=== PATIENT | male | born 1950 | race Caucasian/White ===

== ENCOUNTER → 2023-09-08 14:10 | Outpatient (REF) | payer OTHER, SELFPAY | LOC: HWRAD 14:10 | PROVIDERS: ATTENDING PHYSICIAN Specialist; FAMILY PHYSICIAN Family Medicine | DX: N28.1 Cyst of kidney, acquired (principal) | CPT/HCPCS: 74018 ==

== ENCOUNTER 2024-02-23 18:33 | Emergency (ER) | payer OTHER, SELFPAY ==
[2024-02-23 18:39] VITALS: BP 167/96
[2024-02-23 19:01] LABS: % Basophils 0.6 % (0-2); % Eosinophils 3.7 % (0-6); % Immature Granulocytes 0.2 % (0-0.5); % Lymphocytes 30.1 % (20.5-51.1); % Monocytes 9.6 % (1.7-9.3); % Neutrophils 55.8 % (42.2-75.2); Absolute Eosinophils 0.2 10^3/uL (0-0.7); Absolute Lymphocytes 1.5 10^3/uL (1.2-3.4); Absolute Monocytes 0.5 10^3/uL (0.1-0.6); Absolute Neutrophils 2.8 10^3/uL (1.4-6.5); Hematocrit 39.9 % (39.0-52.0); Hemoglobin 13.5 g/dL (13.0-18.0); Mean Corp Hgb Conc. 33.8 g/dL (33.0-37.0); Mean Corpuscular Volume 94.5 fL (80.0-94.0); Mean Platelet Volume 9.6 fL (7.4-10.4); Nucleated Red Blood Cells % 0 % (-); Platelet Count 155 10^3/uL (130-400); Red Blood Cell Count 4.22 10^6/uL (4.70-6.10); Red Cell Dist. Width 12.6 % (11.5-14.5); White Blood Cell Count 5.1 10^3/uL (4.8-10.8)
[2024-02-23 19:22] LABS: Troponin I 0.026 ng/ml
[2024-02-23 19:32] LABS: ALT (SGPT) 35 U/L (0-50); AST (SGOT) 33 U/L (17-59); Albumin 4.5 g/dl (3.5-5.0); Alkaline Phosphatase 52 U/L (38-126); Blood Urea Nitrogen 33 mg/dl (9-20); Carbon Dioxide 19 mmol/L (22-30); Chloride 109 mmol/L (98-107); Glucose 86 mg/dl (70-99); Potassium 4.7 mmol/L (3.5-5.1); Sodium 141 mmol/L (135-145); Total Protein 6.6 g/dl (6.3-8.2)
[2024-02-23 20:37] VITALS: BMI 31.0
--- NOTE | 2024-02-23 20:57 | ED.GENMED ---
History of Present Illness
General
Chief Complaint: Chest Pain
Source: patient and spouse
Exam Limitations: none
Time Seen by Provider: 02/23/24 20:34
Nursing documentation reviewed up to this point in time: agreed with
History of Present Illness
History of Present Illness:
73-year-old male presents Emergency Department due to midsternal chest pain and shortness of breath for the past 2 weeks. The pain is constant but varies in intensity. He called Dr. Joyce Milligan and was directed to the emergency department.
Past History
Past History
ED Past Medical History: GERD, HTN, Psychiatric (Depression), Other (Vertigo, kidney stones) and Other
ED Past Surgical History: Cardiac (Pleural or pericardial cyst removal ), Orthopedic, Tonsilectomy, Urological (Lithotripsy) and Other (Gastric bypass surgery )
Social History
Tobacco: Non-smoker
Alcohol: Occasional
Personal:
Living: with family
Employment: Employed
Family History
Family History: Other
Review of Systems
Review of Systems
Allergies reviewed?: Yes
All Other Systems: Not applicable
Constitutional: Reports no symptoms
EENT: Reports no symptoms
Respiratory: Reports trouble breathing
Cardiac: Reports chest pain
ABD/GI: Reports no symptoms
: Reports no symptoms
Musculoskeletal: Reports no symptoms
Skin: Reports no symptoms
Neurological: Reports no symptoms
Endocrine: Reports no symptoms
Hematologic/Lymphatic: Reports no symptoms
Psychiatric: Reports no symptoms
Phy Exam
Physical Exam
Physical Exam:
Physical Exam
General: no apparent distress, not acutely ill
Neck: supple. no meningeal signs. normal posterior pharynx
Heart: s1/s2 regular rate and rhythm, no murmur. equal radial
pulses. Mild chest wall tenderness to palpation, reproducing pain.
HEENT: Pupils equal round reactive to light, EOMI
Lungs: no acute respiratory distress. clear bilaterally
Abdomen: normal bowel sounds. not tender. no CVAT
Neuro: alert and oriented. no focal neurological deficits cranial nerves II through XII intact
Skin: no rash
Psychiatric: well kept. interactive and cooperative
Extremities: no edema. no calf tenderness. negative homans. good distal pulses
Scores
Heart Score for Chest Pain Patients
STEMI patient?: No
History: Moderately Suspicious
ECG: Normal
Age: >/= 65 years
Risk Factors: 1 or 2 Risk Factors
Troponin: </= Normal Limit
Heart Score for Chest Pain Patients: 4
Heart Score Risk: 20.3% MACE over next 6 weeks
Course
Orders/Labs/Results
Orders:
Orders
02/23/24 18:35
Electrocardiogram (*1) Urgent
Reason for Study: Chest Pain
EKG- Treatment ONCE
02/23/24 18:50
Complete Blood Count/With Diff Urgent
Comprehensive Metabolic Panel Urgent
Troponin I Urgent
02/23/24 20:50
D-Dimer Urgent
02/23/24 21:48
Troponin I Urgent
Abnormal Lab Results
02/23/24
18:50
RBC 4.22 L 10^6/uL
(4.70-6.10)
MCV 94.5 H fL
(80.0-94.0)
MCH 32.0 H pg
(27.0-31.0)
Monocytes % 9.6 H %
(1.7-9.3)
Chloride 109 H mmol/L
(98-107)
Carbon Dioxide 19 L mmol/L
(22-30)
BUN 33 H mg/dl
(9-20)
Creatinine 1.6 H mg/dL
(0.7-1.3)
02/23/24 18:50
02/23/24 18:50
Vital Signs
Initial and Last Documented VS:
Initial Vital Signs
Temp Pulse Resp BP Pulse Ox
97.9 F 63 16 167/96 99
02/23/24 18:39 02/23/24 18:39 02/23/24 18:39 02/23/24 18:39 02/23/24 18:39
Last Documented Vital Signs
Temp Pulse Resp BP Pulse Ox
97.9 F 53 15 117/75 97
02/23/24 18:39 02/23/24 22:45 02/23/24 22:45 02/23/24 22:00 02/23/24 22:45
MDM/Problems Addressed
Differential Diagnosis Includes:
Angina, chest wall pain
MDM/Problems Addressed:
73-year-old male with chest pain, unclear etiology, favor chest wall pain. Patient has had some shortness of breath as well. Serial troponins negative. Stable for discharge and follow-up with cardiology.
Chronic conditions affecting care: HTN
Acute Exacerbation and/or Progression of Chronic Illness: HTN
*Radiology
Radiology exam reviewed: radiology read reviewed (Chest x-ray no acute findings)
*Pulse Oximetry
Patient hypoxic: no
*EKG
Interpreted by ED Provider?: Yes
EKG Intrepretation Date: 02/23/24
EKG Intrepretation Time: 18:40
Interpretation: abnormal
Comparison EKG: changes noted
Heart Rate: 53
Rate: bradycardiac
Rhythm: sinus
[place]: normal axis
Interval: normal interval
QRS Pattern: normal QRS
Ischemia: no ischemia
*Hydraulic Punch Press Operator Interpretation
Rate: bradycardiac
Interpretation: abnormal
Heart Rate: 53
Rhythm: sinus
*Critical Care Note
Total Time (30-74mins, 75-104mins- exclusive of procedures): Not Applicable
Patient Management
Social determinants of health affecting care: Living situation and Strong social support
Escalation/DeEscalation of care consider admission/obs:
admit not indicated
ED Attending Note
-
Portions of this chart may have been created with voice recognition software.� Occasional wrong word or��sound alike� substitutions may have occurred due to the inherent limitations of voice recognition software.
Discharge Plan
Departure
Patient Disposition: Home (Routine Discharge)
Date of Disposition: 02/23/24
Time of Disposition: 22:41
Patient with high blood pressure during this ER visit?: Yes
Condition: Good
Discharge Problem:
Chest pain
Instructions: Chest Pain DCA Follow Up
Prescriptions:
No Action
amlodipine 5 MG tablet
5 mg PO BID
pantoprazole 40 MG tablet,delayed release (DR/EC)
40 mg PO DAILY
losartan 50 MG tablet
50 mg PO BID
acetaminophen 325 MG tablet
650 mg PO Q4HPRN PRN (Reason: mild pain)
loperamide 2 MG capsule
2 mg PO Q4HPRN PRN (Reason: diarrhea)
cyanocobalamin (vitamin B-12) 1,000 MCG tablet
1,000 mcg PO DAILY
thiamine HCl (vitamin B1) 100 MG tablet
100 mg PO DAILY
doxazosin 4 MG tablet
4 mg PO HS
escitalopram oxalate 10 MG tablet
10 mg PO QPM
cholecalciferol (vitamin D3) 1,000 UNITS tablet
1,000 units PO DAILY
potassium citrate 15 MEQ tablet extended release
15 meq PO BID
multivitamin with folic acid [Tab-A-Willow] 1 TABLET tablet
1 tab PO DAILY
cefuroxime axetil 500 MG tablet
500 mg PO BID Qty: 14 0RF
Referrals:
Rivera Zamudio DO [Family Provider] -
Interventions
Interventions:
*Risk Screen - Suicide Last Done: 02/23/24 18:40
*General Assessment Last Done: 02/23/24 20:37
*Neglect/Abuse Screening Last Done: 02/23/24 18:40
ED- Fall Risk Assessment Last Done: 02/23/24 20:40
*ED COVID-19 Vaccine History Last Done: 02/23/24 20:37
*Nursing Disposition Last Done: 02/23/24 22:52
ED- Cardiac Assessment Last Done: 02/23/24 20:40
Discharge Date and Time
Discharge Date/Time: 02/23/24 22:52
Print Language: ISRAELI
[2024-02-23 21:00] VITALS: BP 130/85
[2024-02-23 21:11] LABS: D-Dimer 0.43 ug/mlFEU (0.00-0.50)
[2024-02-23 22:00] VITALS: BP 117/75
[2024-02-23 22:18] LABS: Troponin I 0.025 ng/ml
== END 2024-02-23 22:52 | disposition home or self-care (01) ==
LOC: EMR 18:33
PROVIDERS: Emergency Medicine; EMERGENCY PHYSICIAN Emergency Medicine; FAMILY PHYSICIAN Family Medicine
DX: R07.89 Other chest pain (principal); I10 Essential (primary) hypertension
CPT/HCPCS: 99285; 71046; 80053; 84484; 85025; 85379; 93005

== ENCOUNTER 2024-02-25 15:15 | Inpatient (IN) | payer OTHER, MEDICARE, SELFPAY ==
[2024-02-25] VITALS (14 sets, daily range): BP systolic 104–133; BP diastolic 63–92
--- NOTE | 2024-02-25 11:41 | ED.GENMED ---
History of Present Illness
<Brittany Alexis PA-C - Last Filed: 02/25/24 17:14>
General
Chief Complaint: Chest Pain
Source: patient
Time Seen by Provider: 02/25/24 11:30
History of Present Illness
History of Present Illness:
73yoM with a history of hypertension presenting for evaluation of chest pain. Patient has been having ongoing central chest pain and shortness of breath over the past several weeks. Symptoms worsen with exertion. He was seen in the ED 2 days ago
for the same and was discharged after serial troponins were negative. He was seen by his physical security specialist today, Dr. Milligan, and he was sent to the ED for cardiac catheterization. He currently has mild chest discomfort which has improved since his
last ED visit. He denies any history of coronary artery disease.
Past History
<Brittany Alexis PA-C - Last Filed: 02/25/24 17:14>
Past History
ED Past Medical History: GERD, HTN, Psychiatric (Depression), Other (Vertigo, kidney stones) and Other
ED Past Surgical History: Cardiac (Pleural or pericardial cyst removal ), Orthopedic, Tonsilectomy, Urological (Lithotripsy) and Other (Gastric bypass surgery )
Social History
Tobacco: Non-smoker
Alcohol: Occasional
Personal:
Living: with family
Employment: Employed
Family History
Family History: Other
Phy Exam
<Brittany Alexis PA-C - Last Filed: 02/25/24 17:14>
General Physical Exam
General Presentation: well appearing and no apparent distress
General age: appears stated age
General Skin: warm and dry
General Habitus: normal
General Mental: alert
General Hydration: appears well hydrated
ENT Exam
ENT Exam: normocephalic
Cardiovascular Exam
Cardiovascular Exam: regular rate/rhythm, no murmur and normal peripheral pulses (2+ radial and DP pulses bilaterally)
Pulmonary Exam
Pulmonary Exam: lungs clear, no respiratory distress, no rales, no crackles, no rhonchi and no wheezing
Neurological Exam
Neurological Exam: alert
[place] Coma Scale
Eye Opening: Spontaneous
Verbal Response: Oriented
Motor Response: Obeys Commands
GCS Total Score: 15
Skin Exam
Skin Exam: normal color and warm/dry
Psychiatric Exam
Psychiatric Exam: normal mood/affect
<Chad Rodriguez DO - Last Filed: 02/25/24 12:41>
[place] Coma Scale
GCS Total Score: 15
Scores
<Brittany Alexis PA-C - Last Filed: 02/25/24 17:14>
Heart Score for Chest Pain Patients
STEMI patient?: No
History: Moderately Suspicious
ECG: Normal
Age: >/= 65 years
Risk Factors: 1 or 2 Risk Factors
Troponin: </= Normal Limit
Heart Score for Chest Pain Patients: 4
Heart Score Risk: 20.3% MACE over next 6 weeks
Course
<Brittany Alexis PA-C - Last Filed: 02/25/24 17:14>
Orders/Labs/Results
Orders:
Orders
02/25/24 11:19
Electrocardiogram (*1) Urgent
Reason for Study: Chest Pain
EKG- Treatment ONCE
02/25/24 11:30
Cardiac Monitoring- Treatment ONCE
Aspirin Chewable [Low Strength Aspirin] 324 mg PO NOW STA
02/25/24 11:31
CR Chest - 2 Views Urgent
Comment:
Reason For Exam: CP
02/25/24 11:40
Atorvastatin [Lipitor] 40 mg PO NOW STA
02/25/24 11:45
CARDIOLOGY CONSULT Urgent
Consulting Provider: Kirill Mercedes
Was physician already notified: Yes
02/25/24 11:56
Heparin 4,000 units IV NOW STA
Nursing to Place Non Medication Order As Directed
Physician Order: PTT 6 hours after initial start of Heparin infusion
Above order entered?: Yes
02/25/24 12:00
Heparin 47660 Units/250 ml 25,000 units in 250 ml IV PER PROTOCOL
Weight to be used for heparin protocol in kilograms (kg):: 92.1
Protocol:: Cardiac Tx/Acute Coronary
PTT Goal Range to be used:: PTT 73 to 111 seconds
Order type:: Initial
INITIAL Infusion Dose (UNITS/KG/hr) & then follow protocol:: 12 units/kg/hr
Infusion Dose in UNITS/hr & then follow protocol (UNITS/hr):: 1,000
INFUSION RATE in mL/hr & then follow protocol (mL/hr):: 10
PTT less than or equal to 64 seconds:: Increase rate by 200 units/hr (+ 2 mL/hr)
PTT 64.1 to 72.9 seconds:: Increase rate by 100 units/hr (+ 1 mL/hr)
PTT 73 to 111 seconds:: Target Range. No change in rate.
PTT 111.1 to 130.9 seconds:: Decrease rate by 100 units/hr (- 1 mL/hr)
PTT 131 to 199.9 seconds:: HOLD for 1 hr. Then decrease rate by 200 units/hr (- 2 mL/hr)
PTT greater than or equal to 200 seconds:: HOLD for 2 hrs & Notify Provider. Then decrease by 200 units/hr (-
2 mL/hr)
Lab follow-up:: Each change, PTT q6h until 2 consecutive are therapeutic. Then PTT
daily.
02/25/24 12:47
Complete Blood Count/With Diff Urgent
Comprehensive Metabolic Panel Urgent
PTT Urgent
PTT Urgent
Comment: Obtain baseline before beginning heparin infusion if not already collected
Prothrombin Time Urgent
Troponin I Urgent
02/25/24 14:00
Hydrocortisone Sod Succinate [Solu-Cortef] 200 mg IV NOW STA
02/25/24 14:25
Admit/Transfer Patient As Directed
Co-Sign Provider:
Level of Care: Inpatient admission
Assign to:: Telemetry
Physician / Group: Dr. Delbert Pizarro
Diagnosis: Chest pain
Reason for Telemetry: Chest Pain syndromes
Date to Stop Telemetry: 02/27/24
Time to Stop Telemetry: 11:00
Reason for Hospitalization: Persistent chest pain
Expected length of stay greater than two midnights?: Yes
ELOS- Estimated Length of Stay in days: 3
I certify the patient meets the requirements for IP care: Yes
02/25/24 15:05
Code Status As Directed
Resuscitation Status: Full Code
02/25/24 16:34
Acetaminophen [Tylenol] 650 mg PO Q4HPRN PRN
02/25/24 18:00
Escitalopram Oxalate [Lexapro] 10 mg PO QPM
02/25/24 18:54
PTT Urgent
02/25/24 20:00
Amlodipine [Norvasc] 5 mg PO BID
Losartan [Cozaar] 50 mg PO BID
Pantoprazole [Protonix] 40 mg PO BID
02/25/24 22:00
Doxazosin Mesylate [Cardura] 4 mg PO HS
02/26/24 08:00
Aspirin Chewable [Low Strength Aspirin] 81 mg PO DAILY
02/27/24 11:00
DC Protocol for Telemetry ONCE
Abnormal Lab Results
02/25/24
12:47
WBC 3.8 L 10^3/uL
(4.8-10.8)
RBC 4.04 L 10^6/uL
(4.70-6.10)
Hct 38.3 L %
(39.0-52.0)
MCV 94.8 H fL
(80.0-94.0)
MCH 32.2 H pg
(27.0-31.0)
Plt Count 128 L 10^3/uL
(130-400)
PT 14.7 H Sec
(11.4-14.6)
Chloride 108 H mmol/L
(98-107)
BUN 31 H mg/dl
(9-20)
Creatinine 1.6 H mg/dL
(0.7-1.3)
Total Protein 6.0 L g/dl
(6.3-8.2)
02/25/24 12:47
02/25/24 12:47
Vital Signs
Initial and Last Documented VS:
Initial Vital Signs
Temp Pulse Resp Pulse Ox
97.9 F 58 18 100
02/25/24 11:20 02/25/24 11:20 02/25/24 11:20 02/25/24 11:20
Last Documented Vital Signs
Temp Pulse Resp BP Pulse Ox
97.9 F 55 9 125/88 97
02/25/24 11:20 02/25/24 17:01 02/25/24 16:38 02/25/24 17:01 02/25/24 16:38
<Chad Rodriguez, DO - Last Filed: 02/25/24 12:41>
Orders/Labs/Results
Orders:
Orders
02/25/24 11:19
Electrocardiogram (*1) Urgent
Reason for Study: Chest Pain
EKG- Treatment ONCE
02/25/24 11:30
Cardiac Monitoring- Treatment ONCE
Aspirin Chewable [Low Strength Aspirin] 324 mg PO NOW STA
02/25/24 11:31
CR Chest - 2 Views Urgent
Comment:
Reason For Exam: CP
02/25/24 11:40
Atorvastatin [Lipitor] 40 mg PO NOW STA
02/25/24 11:45
CARDIOLOGY CONSULT Urgent
Consulting Provider: Kirill Mercedes
Was physician already notified: Yes
02/25/24 11:56
Heparin 4,000 units IV NOW STA
Nursing to Place Non Medication Order As Directed
Physician Order: PTT 6 hours after initial start of Heparin infusion
Above order entered?: Yes
02/25/24 12:00
Heparin 92213 Units/250 ml 25,000 units in 250 ml IV PER PROTOCOL
Weight to be used for heparin protocol in kilograms (kg):: 92.1
Protocol:: Cardiac Tx/Acute Coronary
PTT Goal Range to be used:: PTT 73 to 111 seconds
Order type:: Initial
INITIAL Infusion Dose (UNITS/KG/hr) & then follow protocol:: 12 units/kg/hr
Infusion Dose in UNITS/hr & then follow protocol (UNITS/hr):: 1,000
INFUSION RATE in mL/hr & then follow protocol (mL/hr):: 10
PTT less than or equal to 64 seconds:: Increase rate by 200 units/hr (+ 2 mL/hr)
PTT 64.1 to 72.9 seconds:: Increase rate by 100 units/hr (+ 1 mL/hr)
PTT 73 to 111 seconds:: Target Range. No change in rate.
PTT 111.1 to 130.9 seconds:: Decrease rate by 100 units/hr (- 1 mL/hr)
PTT 131 to 199.9 seconds:: HOLD for 1 hr. Then decrease rate by 200 units/hr (- 2 mL/hr)
PTT greater than or equal to 200 seconds:: HOLD for 2 hrs & Notify Provider. Then decrease by 200 units/hr (-
2 mL/hr)
Lab follow-up:: Each change, PTT q6h until 2 consecutive are therapeutic. Then PTT
daily.
02/25/24 12:47
Complete Blood Count/With Diff Urgent
Comprehensive Metabolic Panel Urgent
PTT Urgent
PTT Urgent
Comment: Obtain baseline before beginning heparin infusion if not already collected
Prothrombin Time Urgent
Troponin I Urgent
02/25/24 14:00
Hydrocortisone Sod Succinate [Solu-Cortef] 200 mg IV NOW STA
02/25/24 14:25
Admit/Transfer Patient As Directed
Co-Sign Provider:
Level of Care: Inpatient admission
Assign to:: Telemetry
Physician / Group: Dr. Delbert Pizarro
Diagnosis: Chest pain
Reason for Telemetry: Chest Pain syndromes
Date to Stop Telemetry: 02/27/24
Time to Stop Telemetry: 11:00
Reason for Hospitalization: Persistent chest pain
Expected length of stay greater than two midnights?: Yes
ELOS- Estimated Length of Stay in days: 3
I certify the patient meets the requirements for IP care: Yes
02/25/24 15:05
Code Status As Directed
Resuscitation Status: Full Code
02/25/24 16:34
Acetaminophen [Tylenol] 650 mg PO Q4HPRN PRN
02/25/24 18:00
Escitalopram Oxalate [Lexapro] 10 mg PO QPM
02/25/24 18:54
PTT Urgent
02/25/24 20:00
Amlodipine [Norvasc] 5 mg PO BID
Losartan [Cozaar] 50 mg PO BID
Pantoprazole [Protonix] 40 mg PO BID
02/25/24 22:00
Doxazosin Mesylate [Cardura] 4 mg PO HS
02/26/24 08:00
Aspirin Chewable [Low Strength Aspirin] 81 mg PO DAILY
02/27/24 11:00
DC Protocol for Telemetry ONCE
Abnormal Lab Results
02/25/24
12:47
WBC 3.8 L 10^3/uL
(4.8-10.8)
RBC 4.04 L 10^6/uL
(4.70-6.10)
Hct 38.3 L %
(39.0-52.0)
MCV 94.8 H fL
(80.0-94.0)
MCH 32.2 H pg
(27.0-31.0)
Plt Count 128 L 10^3/uL
(130-400)
PT 14.7 H Sec
(11.4-14.6)
Chloride 108 H mmol/L
(98-107)
BUN 31 H mg/dl
(9-20)
Creatinine 1.6 H mg/dL
(0.7-1.3)
Total Protein 6.0 L g/dl
(6.3-8.2)
02/25/24 12:47
02/25/24 12:47
Vital Signs
Initial and Last Documented VS:
Initial Vital Signs
Temp Pulse Resp Pulse Ox
97.9 F 58 18 100
02/25/24 11:20 02/25/24 11:20 02/25/24 11:20 02/25/24 11:20
Last Documented Vital Signs
Temp Pulse Resp BP Pulse Ox
97.9 F 55 9 125/88 97
02/25/24 11:20 02/25/24 17:01 02/25/24 16:38 02/25/24 17:01 02/25/24 16:38
Arelislt;Brittany Alexis PA-C - Last Filed: 02/25/24 17:14>
MDM/Problems Addressed
Differential Diagnosis Includes:
73yoM here with chest pain and SOB ongoing x several weeks. Seen in the ED 2 days ago for the same. Sent here by cardiology for cardiac cath. VSS. He is well-appearing in no acute distress. Exam is reassuring. Differential diagnosis includes but
is not limited to: Stable angina, ACS, CHF, nonspecific chest pain
Initial ED plan: Check cardiac labs, EKG, and chest x-ray. Aspirin load and heparin drip per cardiology recommendations. He will require admission.
<Brittany Alexis PA-C - Last Filed: 02/25/24 17:14>
*EKG
Interpreted by ED Provider?: Yes
EKG Intrepretation Date: 02/25/24
Heart Rate: 48
Rate: bradycardiac
Rhythm: sinus
Interval: normal interval
QRS Pattern: normal QRS
Ischemia: no ischemia
*Critical Care Note
Total Time (30-74mins, 75-104mins- exclusive of procedures): Not Applicable
ED Attending Note
<Brittany Alexis PA-C - Last Filed: 02/25/24 17:14>
-
Portions of this chart may have been created with voice recognition software.� Occasional wrong word or��sound alike� substitutions may have occurred due to the inherent limitations of voice recognition software.
<Chad Rodriguez DO - Last Filed: 02/25/24 12:41>
ED Attending Note
Patient seen and examined by attending physician: Yes
I performed the substantive portion of visit, reviewed & personally made and approve the management plan that is documented in note by myself or TYSHAWN.: Yes
ED Attending Note:
Seen with YONIS examined independently 73-year male seen in the ER few nights ago chest pain discharged to follow-up with cardiology saw physical security specialist today referred to the ER for medications and then cardiac cath EKG noted looks comfortable states he
has some mild indigestion-like feeling plan be aspirin heparin nitrates cardiology has been notified
Discharge Plan
Departure
Patient Disposition: Admit
Date of Disposition: 02/25/24
Time of Disposition: 12:32
Presentation/result/management discussed w/ accepting MD/DO: Hospitalist
Discharge Problem:
Chest pain
Interventions
Interventions:
*Risk Screen - Suicide Last Done: 02/25/24 13:09
*General Assessment Last Done: 02/25/24 14:44
*Neglect/Abuse Screening Last Done: 02/25/24 13:09
ED- Fall Risk Assessment Last Done: 02/25/24 13:09
*ED COVID-19 Vaccine History Last Done: 02/25/24 14:44
*Nursing Disposition Last Done: 02/25/24 15:56
ED- Cardiac Assessment Last Done: 02/25/24 13:09
Discharge Date and Time
Discharge Date/Time: 02/25/24 15:56
[2024-02-25] MEDS: LOW STRENGTH ASPIRIN 324 MG PO (12:46)
[2024-02-25] MEDS: LIPITOR 40 MG PO (12:47)
[2024-02-25] MEDS: HEPARIN 4000 UNITS IV (12:53)
[2024-02-25] MEDS: HEPARIN 25000 UNITS/250 ML IV (12:54)
[2024-02-25 12:57] LABS: % Basophils 0.8 % (0-2); % Eosinophils 4.5 % (0-6); % Immature Granulocytes 0.3 % (0-0.5); % Lymphocytes 31.5 % (20.5-51.1); % Monocytes 9.2 % (1.7-9.3); % Neutrophils 53.7 % (42.2-75.2); Absolute Eosinophils 0.2 10^3/uL (0-0.7); Absolute Lymphocytes 1.2 10^3/uL (1.2-3.4); Absolute Monocytes 0.4 10^3/uL (0.1-0.6); Absolute Neutrophils 2.1 10^3/uL (1.4-6.5); Hematocrit 38.3 % (39.0-52.0); Mean Corp Hgb Conc. 33.9 g/dL (33.0-37.0); Mean Corpuscular Hgb 32.2 pg (27.0-31.0); Mean Corpuscular Volume 94.8 fL (80.0-94.0); Mean Platelet Volume 10.1 fL (7.4-10.4); Nucleated Red Blood Cells % 0 % (-); Platelet Count 128 10^3/uL (130-400); Red Blood Cell Count 4.04 10^6/uL (4.70-6.10); Red Cell Dist. Width 12.5 % (11.5-14.5); White Blood Cell Count 3.8 10^3/uL (4.8-10.8)
[2024-02-25 13:10] LABS: ALT (SGPT) 31 U/L (0-50); AST (SGOT) 26 U/L (17-59); Albumin 3.9 g/dl (3.5-5.0); Alkaline Phosphatase 59 U/L (38-126); Blood Urea Nitrogen 31 mg/dl (9-20); Calcium 8.5 mg/dl (8.4-10.2); Carbon Dioxide 23 mmol/L (22-30); Chloride 108 mmol/L (98-107); Estimated Creatinine Clearance 45 ml/min; Glucose 93 mg/dl (70-99); Potassium 4.4 mmol/L (3.5-5.1); Sodium 140 mmol/L (135-145); Total Bilirubin 1.1 mg/dl (0.2-1.3)
[2024-02-25 13:18] LABS: PT 14.7 Sec (11.4-14.6)
[2024-02-25 13:21] LABS: Troponin I 0.028 ng/ml
--- NOTE | 2024-02-25 13:27 | W.PN.CARDCBS ---
Addendum entered and electronically signed by Joyce Milligan MD 02/25/24 15:29:
I saw and examined the patient.
The Dog Food Dough Mixer's note was reviewed and I agree with the note.
Comment: Patient with continued exertional chest discomfort. Recently seen in the ER. Symptoms have not abated. Consistent with angina. Cardiovascular risk factors noted. Patient seen in the office today and chest discomfort noted walking from
car to office which stopped with rest. Patient was sent to the emergency department for evaluation and to proceed with cardiac catheterization. Aggressive risk factor modification. Heparin/aspirin/statin. Await cardiac catheterization.
Original Note:
Today's Communication / Plan
-
Continue IV heparin
Aspirin 324 mg given in ER. Continue aspirin 81mg daily
Start high intensity statin
LHC today, given 200mg IV hydrocortisone in ER. Will need 50mg benadryl prior to cath.
Impression / Plan
-
Office visit 02/25/2024 will act as consult
PCP: Dr. Zamudio
Cardiology: Dr. Joyce Milligan
Impression:
Chest pain, concerning for unstable angina
Hypertension
Hyperlipidemia
CKD 3
Exercise nuclear stress test 08/30/2021: Patient completed 6 minutes and 0 seconds of the [place] protocol achieving 7 METS and 86% maximum predicted heart rate. Stress ECG negative for ischemia. Fixed defect in the basal inferior, basal inferoseptal,
mid inferior, mid inferoseptal, and apical inferior segments consistent with soft tissue attenuation. EF 66%.
Echo 02/29/2020: EF 60%, mild concentric LVH, trace MR, mild TR, estimated PAP 20 to 25 mmHg
Plan:
-Presented to outpatient cardiology office 02/25/2024 for follow-up after recent ER visit for chest pain. He continued to have ongoing shortness of breath and chest discomfort, concerning for unstable angina. He was referred to the ER for further
evaluation and cardiac catheterization.
-Pain is mild currently, rated as a 1/10.
-Heparin drip started in ER.
-Status post aspirin 325 mg in ER. Continue aspirin 81 mg daily.
-If he has recurrent/worsening chest pain, would give nitroglycerin.
-Keep n.p.o. for [facility] later today. Last meal was an egg casserole with toast around 5 AM
-Creatinine 1.6 which is his baseline. Continue to follow closely post cath. May need IV hydration.
-IV contrast allergy noted. Given 200 mg IV hydrocortisone in ER. Will give another dose as well as IV Benadryl prior to cath
-EKG from ER reviewed, sinus bradycardia. No acute ischemic changes noted.
-Prior echo 02/2020 with preserved EF. Would repeat this admission
-BP stable, continue current medications.
-Further recommendations to be made post cath.
Progress Note - Timber Watchman
Subjective
Date of Service: February 25, 2024
Currently only with mild chest pain, 04/09 in severity.
Objective
Labs:
02/25/24 12:47
02/25/24 12:47
Labs
Hgb 13.0 g/dL (13.0-18.0) 02/25/24 12:47
Hct 38.3 % (39.0-52.0) L 02/25/24 12:47
Plt Count 128 10^3/uL (130-400) L 02/25/24 12:47
APTT Cancelled 02/25/24 12:47
Sodium 140 mmol/L (135-145) 02/25/24 12:47
Potassium 4.4 mmol/L (3.5-5.1) 02/25/24 12:47
BUN 31 mg/dl (9-20) H 02/25/24 12:47
Creatinine 1.6 mg/dL (0.7-1.3) H 02/25/24 12:47
Glucose 93 mg/dl (70-99) 02/25/24 12:47
Troponins
02/25/24
12:47
Troponin I 0.028
Vital Signs and I&O:
Vital Signs
Temp Pulse Resp BP Pulse Ox
97.9 F 60 17 114/86 99
02/25/24 11:20 02/25/24 13:00 02/25/24 13:00 02/25/24 13:00 02/25/24 13:09
Vital Signs
Temp Pulse Resp BP Pulse Ox
97.9 F 60 17 114/86 99
02/25/24 11:20 02/25/24 13:00 02/25/24 13:00 02/25/24 13:00 02/25/24 13:09
Physical Exam
Physical Exam
GEN: No distress, awake, alert, oriented x3
HEENT: supple, anicteric, mmm
LUNGS: CTA b/l, no wheezes/rales
CV: Reg, S1/S2, no murmur
EXT: No clubbing, cyanosis, or edema
NEURO: Gross non-focal
SKIN: Warm, dry, no rash
[2024-02-25] MEDS: SOLU-CORTEF 200 MG IV (14:30)
[2024-02-25 15:17] LABS: APTT 31.3 Sec (23.4-35.0)
--- NOTE | 2024-02-25 16:40 | ITS.CL.CATH ---
[facility] - Catheterization
Cardiac Catheterization
Procedure Report:
LEFT HEART CATHETERIZATION
Date of Procedure: February 25, 2024
Referring: Dr. Joyce Milligan
PROCEDURES:
1. Left heart catheterization with coronary and single-plane left ventriculography
INDICATION: Chest pain at rest
ACCESS: Right radial artery, 6 [place] sheath
HEMODYNAMICS : (mmHg)
AO (s/d,m) : 120/78, 89
LV (s/d) : 120/5
LVEDP : 15
CORONARY FINDINGS
DOMINANCE: Right
LEFT MAIN: Normal
LEFT ANTERIOR DESCENDING: The LAD arises normally from the left main and runs of the anterior interventricular groove the LAD has minor irregularities but no focal obstructive stenosis over its course a single sizable diagonal branch arises from the
mid LAD
CIRCUMFLEX: The circumflex is a moderate-large caliber nondominant vessel that supplies a single sizable obtuse marginal branch. The proximal circumflex has a 40% stenosis and luminal it is widely patent
RIGHT CORONARY ARTERY: The right coronary artery is a very large caliber dominant vessel with minor irregularities over its course. The PDA is large. The posterolateral branch is large. Only minor irregularities are noted
VENTRICULOGRAPHY: Left ventriculography is performed in an [place] projection. The digital single-plane left ventricular ejection fraction is estimated at 60% and no regional wall motion abnormalities are noted.
RADIATION SUMMARY: Fluoro Time (min): 4.9, Dose (mGy): 370.7, DAP (Gy.cm2) : 31.5
Closure Device: TR band
CONCLUSIONS
1. Nonobstructive coronary disease
2. Preserved left ventricular systolic function
RECOMMENDATIONS
1. Continued medical therapy and risk factor modification
Copy to: Dr. Joyce Milligan
[2024-02-25] MEDS: NSS 500 IV (16:57)
[2024-02-25] MEDS: TYLENOL 650 MG PO (16:57)
[2024-02-25] MEDS: NORVASC 5 MG PO (17:01)
[2024-02-25] MEDS: COZAAR 50 MG PO (17:46)
[2024-02-25] MEDS: PROTONIX 40 MG PO (17:46)
[2024-02-25] MEDS: LEXAPRO 10 MG PO (17:46)
--- NOTE | 2024-02-25 18:35 | HPS.HSE ---
Addendum entered and electronically signed by Delbert Pizarro MD 02/25/24 23:57:
Attending Addendum-
I performed a history and physical exam of the patient and discussed his management with the resident. I reviewed the resident's note and agree with the documented findings and plan of care CC/HPI- Send to ED from [facility] for unstable angina and cath.
patient states pain has been going on for weeks intensified, occurring at rest, and is associated with SOB. epigastric rads up chest. Full 12 point ROS reviewed and negative except as documented Exam- vitals reviewed in EMR GEN-NAD heart RRR lungs
clear abd soft LE no edema
Plan:
# Unstable Angina
- asa and hep gtt
- steroid prepped due to IV dye allergy
- cath 02/24- 1. Nonobstructive coronary disease
2. Preserved left ventricular systolic function
- GDMT
- stable for DC home per cards
# Leukopenia
- monitor as OP
# Thrombocytopenia
- f/u as OP
# CKD3a- baseline cr @ 1.4
# HTN- cont amlo and losartan
# Depression- cont lexapro
# GERD-cont PPI
# BPH- cont doxazosin
ACP
Patient consented to discuss, was alone, time spent explanation of advance directives, changes in health status, patient�s health care wishes if the patient becomes unable to make health decisions, goals of care, code status, and prognosis- 16
minutes
Time spent coordinating care, collecting history, DC planning, review of DC plan of care with resident, transition of care, review of records, med rec/scripts sent electronically, consults, notes, d/w consultants, nursing, family total time
documented is exclusive of any additional time listed that was spent in advance care planning discussion -�90 minutes
Original Note:
Family Physician
-
Family Physician: Rivera Zamudio
Chief Complaint
-
Chest pain
History of Present Illness
73-year-old male, PCP , full code. Came in with chest pain associated with shortness of breath. His maintenance of way clerk sent him to the ED for a catheterization. Chest pain has been going on for a couple of weeks but has intensified in the
past couple of days, moderate in intensity, epigastric and radiates up to the chest, aggravated on getting up in any sort of movement, alleviated on rest. Not taking any sort of medications to alleviate the pain. Already he was seen 2 days ago at
[facility] emergency room on 02/22 for the same symptoms and troponins were negative so he was discharged.
Medical History
Past Medical History
Past Medical History: Reports GERD and HTN
Additional Past Medical History:
Depression, vertigo, kidney stones
Past Surgical History: Reports Other (Removal of pleuropericardial cyst 20 years ago, carpal tunnel both wrist, tonsillectomy, left knee meniscus repair)
Additional Past Surgical History:
Removal of pleuropericardial cyst 20 years ago, carpal tunnel both wrist, tonsillectomy, left knee meniscus repair
Social History
Tobacco: Non-smoker
Alcohol: Occasional
Drug: None
Personal:
Living: With Family
Employment: Employed
Family History
Family History: Not pertinent
Allergies / Home Medications
Allergies reflects when Allergies were last updated in [facility].
Home Medications with original date entered in [facility]
Allergy/Medication List:
Allergies
Allergy/AdvReac Type Severity Reaction Status Date / Time
Gadopentetate Dim Allergy DIFFICULTY Verified 02/25/24 11:22
*RETIRED-12/17/11 BREATHING,
[From [facility]ne[facility]] DIAPHORESIS
Iodinated Contrast Media Allergy UNABLE TO Verified 02/25/24 11:22
[Iodinated Contrast Media - BREATHE,
IV Dye] SUFFOCATING,
SUPER
FLUSHED/HOT
mold Allergy sneezing & Verified 02/25/24 16:38
post nasal
drip
pollen extracts Allergy sneezing & Verified 02/25/24 16:38
post nasal
drip
Home Medications
amlodipine 5 mg tablet 5 mg PO BID Blood pressure 03/09/20
pantoprazole 40 mg tablet,delayed release 40 mg PO BID Gastrointestinal issue 03/09/20
acetaminophen 325 mg tablet 650 mg PO Q4HPRN PRN mild pain 02/02/21
cholecalciferol (vitamin D3) 25 mcg (1,000 unit) tablet 1,000 units PO DAILY Supplement 02/02/21
cyanocobalamin (vitamin B-12) 1,000 mcg tablet 1,000 mcg PO DAILY Supplement 02/02/21
doxazosin 4 mg tablet 4 mg PO HS Blood pressure 02/02/21
escitalopram oxalate 10 mg tablet 10 mg PO QPM Mental Health/Anxiety 02/02/21
losartan 50 mg tablet 50 mg PO BID Blood pressure 02/02/21
multivitamin with folic acid 400 mcg tablet (Tab-A-Willow) 1 tab PO DAILY Supplement 02/02/21
potassium citrate 15 mEq (1,620 mg) tablet,extended release 15 meq PO TID Urinary issue 02/02/21
thiamine HCl (vitamin B1) 100 mg tablet 100 mg PO DAILY Supplement 02/02/21
meloxicam 15 mg tablet 15 mg PO DAILYPRN PRN FOOT PAIN 02/25/24
Review of Systems
-
History Source: Patient
Constitutional: Reports Not Done
EENT: Denies Sore Throat
Respiratory: Denies Cough or Trouble Breathing
Cardiac: Reports Chest Pain; Denies Palpitations or Syncope
Abdomen/GI: Denies Abdominal Pain, Nausea, Vomiting, Diarrhea, Constipated or Bloody Stools
Musculoskeletal: Denies Joint Pain
Neurological: Denies Headache or Weakness
Physical Exam
Vital Signs
Vital Signs
Temp Pulse Resp BP Pulse Ox
97.8 F 69 15 104/63 94
02/25/24 17:35 02/25/24 18:00 02/25/24 18:00 02/25/24 18:00 02/25/24 18:00
Physical Exam
General: Well Developed and Well Nourished
Respiratory: Clear
Cardiac: S1/S2 and Regular Rhythm
GI: Soft, Non Tender and Non Distended
Musculoskeletal: No Edema
Skin: Warm and Dry
Neuro: Awake, Alert and Oriented
Laboratory Results
-
02/25/24 12:47
02/25/24 12:47
Laboratory Results
PT 14.7 Sec (11.4-14.6) H 02/25/24 12:47
INR 1.10 02/25/24 12:47
APTT 31.3 Sec (23.4-35.0) 02/25/24 12:47
APTT 34.0 Sec (23.4-35.0) 02/25/24 12:47
Total Bilirubin 1.1 mg/dl (0.2-1.3) 02/25/24 12:47
AST 26 U/L (17-59) 02/25/24 12:47
ALT 31 U/L (0-50) 02/25/24 12:47
Alkaline Phosphatase 59 U/L (38-126) 02/25/24 12:47
Troponin I 0.028 ng/ml 02/25/24 12:47
Data Reviewed
-
Medical Tests (Nuc Med, Echo, EKG etc): Image Personally Visualized and interpreted and Discussed with Physician
Lab Data: Labs Reviewed by me and Discussed with Physician
Impression/Plan
-
Acute coronary syndrome:
-EKG reviewed and showed sinus bradycardia but otherwise normal EKG
-chest x-ray reviewed and showed no acute cardiopulmonary process
-troponins normal
-Started on heparin/aspirin/statin.
-Patient had cardiac catheterization performed, showed preserved left ventricular systolic function and nonobstructive coronary disease, cardiology recommended medical therapy and risk factor modification
-Transferred to the IVU and then later discharged by cardiology
CKD 3A:
-Creatinine is elevated a level of 1.6 and his baseline creatinine is 1.4
Macrocytic anemia due to potential alcohol use?:
-MCV is 94.8, hematocrit is 38.3, hemoglobin is 13.0, RBCs 4.04
-Leukopenia, WBCs 3.8
-Platelets are 128
-Check folate and B12
Hypertension:
-Continue medication of amlodipine, losartan, doxazosin
GERD:
Continue pantoprazole
--- NOTE | 2024-02-25 18:42 | W.DCSUMMARY ---
Documented by User: Eben Holly MD, Resident 02/25/24 19:55
Discharge Summary
Discharge Data
Date of Admission: 02/25/24
Date of Discharge: 02/25/24
-
Pending Results: No
Hospital Course
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 He was seen by printing supplies sales representative the emergency department for cath. He has been experiencing chest pain associated with shortness of breath for almost 3
weeks, which has gotten worse over the past 5 days. Location is epigastric and radiates up into his sternum and then into his chest, moderate in intensity, aggravated on getting up or any sort of movement, alleviated on lying down and taking rest.
He was already seen on 1125 for similar symptoms and troponin was negative so he was discharged. EKG showed sinus bradycardia but otherwise normal EKG. Chest x-ray showed no acute cardiopulmonary process. Troponins were normal. Labs showed an
elevated creatinine level of 1.6 which is an increase from his baseline 1.4. He was then taken in for left heart catheterization with coronary and single-plane left ventriculography. Conclusion was a nonobstructive coronary disease, proximal left
circumflex has a 40% stenosis and luminal it is widely patent, preserved left ventricular systolic function, and recommended for continued medical therapy and risk factor modification. Patient was then discharged home after catheterization the same
home medications.
Discharge Plan
-
Patient Disposition: Home (Routine Discharge)
Discharge Diagnosis/Procedures: Chest pain
Condition: Good
Diet: Low Sodium
Activity: Other activity
Driving Restrictions: No driving for 24 hours
Bathing Restrictions: None
Stand Alone Forms: DC Instructions- Cath/EP Lab
Referrals:
Rivera Zamudio DO [Family Provider] -
Joyce Milligan MD [Active] - (Please call the office for an appointment in 2-4 weeks)
Prescriptions:
Continued
amlodipine 5 MG tablet
5 mg PO BID
pantoprazole 40 MG tablet,delayed release (DR/EC)
40 mg PO BID
losartan 50 MG tablet
50 mg PO BID
acetaminophen 325 MG tablet
650 mg PO Q4HPRN PRN (Reason: mild pain)
cyanocobalamin (vitamin B-12) 1,000 MCG tablet
1,000 mcg PO DAILY
thiamine HCl (vitamin B1) 100 MG tablet
100 mg PO DAILY
doxazosin 4 MG tablet
4 mg PO HS
escitalopram oxalate 10 MG tablet
10 mg PO QPM
cholecalciferol (vitamin D3) 1,000 UNITS tablet
1,000 units PO DAILY
potassium citrate 15 MEQ tablet extended release
15 meq PO TID
multivitamin with folic acid [Tab-A-Willow] 1 TABLET tablet
1 tab PO DAILY
meloxicam 15 mg Tablet
15 mg PO DAILYPRN PRN (Reason: FOOT PAIN)
Discharge Orders:
Discharge Patient (As Directed); Ordered 02/25/24
Ordered By: Kirill Traina
Discharge Date and Time
Discharge Date/Time: 02/25/24 19:14
Print Language: PORTUGUESE

Documented by User: Delbert Pizarro MD 02/25/24 23:46
Discharge Summary
Discharge Data
Date of Admission: 02/25/24
Date of Discharge: 02/25/24
Discharge Plan
-
Patient Disposition: Home (Routine Discharge)
Discharge Diagnosis/Procedures: Chest pain
Condition: Good
Diet: Low Sodium
Activity: Other activity
Driving Restrictions: No driving for 24 hours
Bathing Restrictions: None
Stand Alone Forms: DC Instructions- Cath/EP Lab
Referrals:
Rivera Zamudio DO [Family Provider] -
Joyce Milligan MD [Active] - (Please call the office for an appointment in 2-4 weeks)
Prescriptions:
Continued
amlodipine 5 MG tablet
5 mg PO BID
pantoprazole 40 MG tablet,delayed release (DR/EC)
40 mg PO BID
losartan 50 MG tablet
50 mg PO BID
acetaminophen 325 MG tablet
650 mg PO Q4HPRN PRN (Reason: mild pain)
cyanocobalamin (vitamin B-12) 1,000 MCG tablet
1,000 mcg PO DAILY
thiamine HCl (vitamin B1) 100 MG tablet
100 mg PO DAILY
doxazosin 4 MG tablet
4 mg PO HS
escitalopram oxalate 10 MG tablet
10 mg PO QPM
cholecalciferol (vitamin D3) 1,000 UNITS tablet
1,000 units PO DAILY
potassium citrate 15 MEQ tablet extended release
15 meq PO TID
multivitamin with folic acid [Tab-A-Willow] 1 TABLET tablet
1 tab PO DAILY
meloxicam 15 mg Tablet
15 mg PO DAILYPRN PRN (Reason: FOOT PAIN)
Discharge Orders:
Discharge Patient (As Directed); Ordered 02/25/24
Ordered By: Kirill Triana
Discharge Date and Time
Discharge Date/Time: 02/25/24 19:14
Print Language: PORTUGUESE
== END 2024-02-25 19:14 | disposition home or self-care (01) | DRG 287 ==
LOC: CATH-IN 15:15
PROVIDERS: Internal Medicine Interventional Cardiology; Physician Assistant; ADMITTING PHYSICIAN Family Medicine; EMERGENCY PHYSICIAN Emergency Medicine; FAMILY PHYSICIAN Family Medicine
PROC: B2151ZZ Fluoroscopy of Left Heart using Low Osmolar Contrast (ICD-10-PCS; 2024-02-25)
PROC: B2111ZZ Fluoroscopy of Multiple Coronary Arteries using Low Osmolar Contrast (ICD-10-PCS; 2024-02-25)
PROC: 4A023N7 Measurement of Cardiac Sampling and Pressure, Left Heart, Percutaneous Approach (ICD-10-PCS; 2024-02-25)
DX: R07.9 Chest pain, unspecified (principal); I20.0 Unstable angina; D69.6 Thrombocytopenia, unspecified; N18.31 Chronic kidney disease, stage 3a; I12.9 Hypertensive chronic kidney disease with stage 1 through stage 4 chronic kidney disease, or unspecified chronic kidney disease; F32.A Depression, unspecified; K21.9 Gastro-esophageal reflux disease without esophagitis; N40.0 Benign prostatic hyperplasia without lower urinary tract symptoms; Z79.82 Long term (current) use of aspirin
CPT/HCPCS: 71046; 80053; 84484; 85025; 85610; 85730; 93005; 93458; 96374; 99285; C1894; Q9967

== ENCOUNTER 2024-03-25 07:47 | Emergency (ER) | payer OTHER, MEDICARE, SELFPAY ==
[2024-03-25 07:51] VITALS: BP 125/81
[2024-03-25 08:12] VITALS: BMI 32.0
[2024-03-25 08:18] VITALS: BP 120/81
--- NOTE | 2024-03-25 08:24 | ED.GENMED ---
History of Present Illness
General
Chief Complaint: Flank Pain
Source: patient
Time Seen by Provider: 03/25/24 08:19
History of Present Illness
History of Present Illness:
See MDM
Past History
Past History
ED Past Medical History: GERD, HTN, Psychiatric (Depression), Other (Vertigo, kidney stones) and Other
ED Past Surgical History: Cardiac (Pleural or pericardial cyst removal ), Orthopedic, Tonsilectomy, Urological (Lithotripsy) and Other (Gastric bypass surgery )
Social History
Tobacco: Non-smoker
Alcohol: Occasional
Personal:
Living: with family
Employment: Employed
Family History
Family History: Other
Phy Exam
Physical Exam
Physical Exam:
See MDM
Course
Orders/Labs/Results
Orders:
Orders
03/25/24 08:16
Complete Blood Count/With Diff Urgent
Comprehensive Metabolic Panel Urgent
03/25/24 08:23
CT Abd/pel Without Iv Or Oral Urgent
Comment:
Reason For Exam: left flank pain
0.9% Sodium Chloride 1000 ml [Nss] 1,000 ml IV BOLUS
Ketorolac [Toradol] 30 mg IV NOW STA
Morphine Sulfate 4 mg IV NOW STA
Ondansetron Injectable [Zofran] 4 mg IV NOW STA
03/25/24 10:13
Morphine Sulfate 4 mg IV NOW STA
03/25/24 10:21
Tamsulosin [Flomax] 0.4 mg PO NOW STA
03/25/24 11:22
Urinalysis Reflex To Culture Urgent
Date Specimen was Collected: 03/25/24
Time Specimen was Collected: 11:21
Urine Microscopic Reflex Cult Urgent
Abnormal Lab Results
03/25/24 03/25/24
08:16 11:22
RBC 4.08 L 10^6/uL
(4.70-6.10)
Hct 38.6 L %
(39.0-52.0)
MCV 94.6 H fL
(80.0-94.0)
MCH 32.4 H pg
(27.0-31.0)
MPV 10.6 H fL
(7.4-10.4)
Chloride 109 H mmol/L
(98-107)
Carbon Dioxide 20 L mmol/L
(22-30)
BUN 26 H mg/dl
(9-20)
Creatinine 1.7 H mg/dL
(0.7-1.3)
Glucose 135 H mg/dl
(70-99)
Total Protein 6.2 L g/dl
(6.3-8.2)
Ur Occult Blood Reflex 3+ A
(Negative)
Urine RBC 21-25 A /HPF
(0-2)
03/25/24 08:16
03/25/24 08:16
Vital Signs
Initial and Last Documented VS:
Initial Vital Signs
Temp Pulse Resp BP Pulse Ox
97.6 F 65 16 125/81 98
03/25/24 07:51 03/25/24 07:51 03/25/24 07:51 03/25/24 07:51 03/25/24 07:51
Last Documented Vital Signs
Temp Pulse Resp BP Pulse Ox
97.6 F 57 18 117/79 98
03/25/24 07:51 03/25/24 08:20 03/25/24 12:02 03/25/24 11:00 03/25/24 11:00
MDM/Problems Addressed
Differential Diagnosis Includes:
HPI and MDM Narrative:
73-year-old male presenting for evaluation of left flank pain. Patient states his symptoms occurred this morning. He states the pain has improved somewhat but he states the presentation is very similar to her prior kidney stone. Patient also
states he feels dehydrated. On exam, he is uncomfortable. He does have a mild left flank tenderness without rash. He is clinically dehydrated. Will obtain CT to rule out kidney stone pathology and will provide pain medicine and IV fluids
Physical exam
General: Mildly uncomfortable
HEENT: protecting airway. Dry mucous membranes
Neck: appears supple
CV: No evidence of cyanosis
Resp: No accessory muscle use
Abd: Non-distended. Mild left flank tenderness without rebound or rash
Extremities: No deformities
Neuro: alert
Psych: Normal affect
Skin: Intact
Problems Addressed including Acute and Chronic Conditions affecting care:
1. Left flank pain
Acuity: acute
Prognosis: stable
Details: Given his presentation and history, will obtain CT to rule out kidney stone pathology. Will provide pain medicine
2. Dehydration
Acuity: acute
Prognosis: stable
Details: Will provide IV fluids
Updates
CT consistent with obstructive kidney stone. Blood work appears to be at baseline. Patient feeling better. Will assess urinalysis before discharge. Patient given a strainer
Differential Diagnosis (but not limited to): Obstructive kidney stone, pyelonephritis, dehydration
Testing considered: KUB
Drug therapy (if applicable): OTC meds, please see d/c instruction regarding Rx drugs
Amount and/or Complexity of Data Reviewed
Clinical info obtained from: Patient
External data reviewed: N/A
Labs I independently reviewed (but not limited to): Baseline CKD
Radiology: The CT scan was personally and independently reviewed. In addition, official CT report reviewed.
Pulse Ox: not hypoxic
EKG independently reviewed: N/A
Claim Attorney: N/A
Critical Care: N/A
Risk of Complication:
Social Determinants of health: Good social support
Discussed with other providers: N/A
Escalation of Care includes Admit/Obs: After being observed in the Emergency Department, pt stable for discharge.
Occasional wrong word or 'sound a like' substitutions may have occurred due to the inherent limitations of voice recognition software. Read the chart carefully and recognize, using context, where substitutions have occurred.
*Critical Care Note
Total Time (30-74mins, 75-104mins- exclusive of procedures): Not Applicable
ED Attending Note
-
Portions of this chart may have been created with voice recognition software.� Occasional wrong word or��sound alike� substitutions may have occurred due to the inherent limitations of voice recognition software.
Discharge Plan
Departure
Patient Disposition: Home (Routine Discharge)
Date of Disposition: 03/25/24
Time of Disposition: 13:02
Patient with high blood pressure during this ER visit?: No
Discharge Problem:
Kidney stone on left side
Instructions: Kidney Stones (DC), How to Strain Your Urine
Prescriptions:
New
tamsulosin [Flomax] 0.4 mg Capsule
0.4 mg PO DAILY Qty: 14 0RF
ondansetron 4 mg Tablet,Disintegrating
4 mg PO BIDPRN PRN (Reason: nausea/vomiting) Qty: 10 0RF
oxycodone 5 mg tablet
5 mg PO Q8H PRN (Reason: Pain) Qty: 10 0RF
No Action
amlodipine 5 MG tablet
5 mg PO BID
pantoprazole 40 MG tablet,delayed release (DR/EC)
40 mg PO BID
losartan 50 MG tablet
50 mg PO BID
acetaminophen 325 MG tablet
650 mg PO Q4HPRN PRN (Reason: mild pain)
cyanocobalamin (vitamin B-12) 1,000 MCG tablet
1,000 mcg PO DAILY
thiamine HCl (vitamin B1) 100 MG tablet
100 mg PO DAILY
doxazosin 4 MG tablet
4 mg PO HS
escitalopram oxalate 10 MG tablet
10 mg PO QPM
cholecalciferol (vitamin D3) 1,000 UNITS tablet
1,000 units PO DAILY
potassium citrate 15 MEQ tablet extended release
15 meq PO TID
multivitamin with folic acid [Tab-A-Willow] 1 TABLET tablet
1 tab PO DAILY
meloxicam 15 mg Tablet
15 mg PO DAILYPRN PRN (Reason: FOOT PAIN)
Referrals:
Rivera Zamudio DO [Family Provider] -
Activity Restrictions/Additional Instructions:
Please return for any worsening symptoms.
You may return at any time if you have further concerns.
Please follow up with your doctor at the first available appointment, preferably this week.
Thank you for choosing [facility].
Interventions
Interventions:
*Risk Screen - Suicide Last Done: 03/25/24 07:51
*General Assessment Last Done: 03/25/24 07:51
*Neglect/Abuse Screening Last Done: 03/25/24 08:08
*ED COVID-19 Vaccine History Last Done: 03/25/24 07:51
HM-Inmtit-Qifrynleap Assessment Last Done: 03/25/24 08:08
ED-Male Genitourinary Assessment Last Done: 03/25/24 08:08
Discharge Date and Time
Print Language: CUBAN
[2024-03-25] MEDS: NSS 1000 IV (08:28)
[2024-03-25] MEDS: ZOFRAN 4 MG IV (08:28)
[2024-03-25] MEDS: MORPHINE SULFATE 4 MG IV ×2 (08:28→10:21)
[2024-03-25] MEDS: TORADOL 30 MG IV (08:28)
[2024-03-25 08:45] LABS: % Basophils 0.8 % (0-2); % Eosinophils 2.9 % (0-6); % Immature Granulocytes 0.2 % (0-0.5); % Lymphocytes 40.3 % (20.5-51.1); % Monocytes 9.1 % (1.7-9.3); % Neutrophils 46.7 % (42.2-75.2); Absolute Eosinophils 0.2 10^3/uL (0-0.7); Absolute Lymphocytes 2.1 10^3/uL (1.2-3.4); Absolute Monocytes 0.5 10^3/uL (0.1-0.6); Absolute Neutrophils 2.4 10^3/uL (1.4-6.5); Hematocrit 38.6 % (39.0-52.0); Hemoglobin 13.2 g/dL (13.0-18.0); Mean Corp Hgb Conc. 34.2 g/dL (33.0-37.0); Mean Corpuscular Hgb 32.4 pg (27.0-31.0); Mean Corpuscular Volume 94.6 fL (80.0-94.0); Mean Platelet Volume 10.6 fL (7.4-10.4); Nucleated Red Blood Cells % 0 % (-); Platelet Count 139 10^3/uL (130-400); Red Blood Cell Count 4.08 10^6/uL (4.70-6.10); Red Cell Dist. Width 12.6 % (11.5-14.5); White Blood Cell Count 5.2 10^3/uL (4.8-10.8)
[2024-03-25 08:48] LABS: ALT (SGPT) 29 U/L (0-50); AST (SGOT) 28 U/L (17-59); Alkaline Phosphatase 67 U/L (38-126); Blood Urea Nitrogen 26 mg/dl (9-20); Calcium 8.8 mg/dl (8.4-10.2); Carbon Dioxide 20 mmol/L (22-30); Chloride 109 mmol/L (98-107); Estimated Creatinine Clearance 43 ml/min; Glucose 135 mg/dl (70-99); Potassium 4.2 mmol/L (3.5-5.1); Sodium 138 mmol/L (135-145); Total Bilirubin 1.1 mg/dl (0.2-1.3); Total Protein 6.2 g/dl (6.3-8.2)
[2024-03-25 10:13] VITALS: BP 112/79
[2024-03-25] MEDS: FLOMAX 0.4 MG PO (10:26)
[2024-03-25 11:00] VITALS: BP 117/79
[2024-03-25 11:46] LABS: Urine Albumin Trace (Neg - Trace); Urine Bilirubin Negative (Negative); Urine Character Clear (Clear); Urine Color Yellow; Urine Glucose Negative (Negative); Urine Ketone Negative (Negative); Urine Leukocyte Negative (Negative); Urine Nitrite Negative (Negative); Urine Occult Blood 3+ (Negative); Urine Specific Gravity 1.015 (<1.030); Urine Urobilinogen Negative (Neg - 1+)
[2024-03-25 12:00] VITALS: BP 109/80
[2024-03-25 12:21] LABS: Urine Mucus Moderate
[2024-03-25 12:22] LABS: Urine Amorphous Seen
[2024-03-25 12:23] LABS: Urine Red Blood Cell 21-25 /HPF (0-2); Urine White Cell 0-2 /HPF (0-5)
[2024-03-25 13:00] VITALS: BP 132/79
== END 2024-03-25 13:12 | disposition home or self-care (01) ==
LOC: EMR 07:47
PROVIDERS: Emergency Medicine; EMERGENCY PHYSICIAN Student in an Organized Health Care Education/Training Program; FAMILY PHYSICIAN Family Medicine
DX: N13.2 Hydronephrosis with renal and ureteral calculous obstruction (principal); K21.9 Gastro-esophageal reflux disease without esophagitis; I10 Essential (primary) hypertension; F32.A Depression, unspecified; Z87.442 Personal history of urinary calculi; Z98.84 Bariatric surgery status
CPT/HCPCS: 99284; 96374; 96375; 96376; 96361; 74176; 80053; 81003; 81015; 85025

== ENCOUNTER → 2024-09-21 14:01 | Outpatient (REF) | payer OTHER, SELFPAY | LOC: HWRAD 14:01 | PROVIDERS: ATTENDING PHYSICIAN Podiatrist Foot & Ankle Surgery; FAMILY PHYSICIAN Family Medicine; REFERRING PHYSICIAN Specialist | DX: N28.1 Cyst of kidney, acquired (principal); M19.072 Primary osteoarthritis, left ankle and foot; M79.2 Neuralgia and neuritis, unspecified | CPT/HCPCS: 73630; 74018 ==

== ENCOUNTER → 2024-09-23 15:04 | Outpatient (REF) | payer OTHER, SELFPAY | LOC: HWRAD 15:04 | PROVIDERS: ATTENDING PHYSICIAN Nurse Practitioner Family; FAMILY PHYSICIAN Family Medicine | DX: M25.511 Pain in right shoulder (principal); M54.2 Cervicalgia; M54.6 Pain in thoracic spine; M54.50 Low back pain, unspecified | CPT/HCPCS: 72110 ==

== ENCOUNTER → 2024-11-24 13:49 | Outpatient (REF) | payer OTHER, SELFPAY | LOC: HWRAD 13:49 | PROVIDERS: ATTENDING PHYSICIAN Specialist; FAMILY PHYSICIAN Family Medicine | DX: N20.0 Calculus of kidney (principal) | CPT/HCPCS: 74018 ==